=== PATIENT | male | born 1995 | race Caucasian/White ===

== ENCOUNTER 2017-06-21 14:59 | Emergency (ER) | payer BC ==
[~2017-06-21] VITALS: Ht 180.3 cm; Wt 63.5 kg
== END 2017-06-21 15:55 | disposition home or self-care (01) ==
LOC: ED 14:59
DX: S01.511A Laceration without foreign body of lip, initial encounter (principal); Z23 Encounter for immunization; Z88.0 Allergy status to penicillin; W01.0XXA Fall on same level from slipping, tripping and stumbling without subsequent striking against object, initial encounter; Y93.01 Activity, walking, marching and hiking
CPT/HCPCS: 90471; 90715; 99282